=== PATIENT | male | born 1990 | race African-American/Black ===

== ENCOUNTER 2019-04-27 13:40 | Emergency (ER) | payer OTHER, SELFPAY ==
[2019-04-27] MEDS ORDERED: Ibuprofen 800 MG TAB ONE (14:05)
== END 2019-04-27 15:03 | disposition home or self-care (01) ==
LOC: BURERS 13:40
DX: S39.011A Strain of muscle, fascia and tendon of abdomen, initial encounter (principal); B34.9 Viral infection, unspecified; I10 Essential (primary) hypertension; F17.210 Nicotine dependence, cigarettes, uncomplicated
CPT/HCPCS: 36415; 85379; 87804; 99283

== ENCOUNTER 2021-11-16 19:29 | Emergency (ER) | payer OTHER, SELFPAY ==
[2021-11-16] MEDS ORDERED: Sulfameth/Trimethoprim DS 800-160mg TAB ONE (19:52)
== END 2021-11-16 20:05 | disposition home or self-care (01) ==
LOC: BURERS 19:29
DX: L03.115 Cellulitis of right lower limb (principal); I10 Essential (primary) hypertension
CPT/HCPCS: 99283

== ENCOUNTER 2023-03-08 07:19 | Emergency (ER) | payer OTHER, SELFPAY | END 2023-03-08 07:49 | disposition home or self-care (01) | LOC: BURERS 07:19 | DX: I10 Essential (primary) hypertension (principal); F17.210 Nicotine dependence, cigarettes, uncomplicated | CPT/HCPCS: 99283 ==